=== PATIENT | female | born 1945 | race Caucasian/White ===

== ENCOUNTER 2018-04-19 10:56 | Emergency (ER) | payer MEDICAID, OTHER ==
[2018-04-19] MEDS: ACETAMINOPHEN 500 MG TAB PO (11:40)
== END 2018-04-19 12:13 | disposition home or self-care (01) ==
LOC: FTE 10:56
DX: J03.90 Acute tonsillitis, unspecified (principal)
CPT/HCPCS: 99284; Z7502

== ENCOUNTER 2018-05-31 17:22 | Emergency (ER) | payer MEDICARE, OTHER, MEDICAID ==
[2018-05-31] MEDS: ONDANSETRON 4 MG INJ IV (18:02)
[2018-05-31] MEDS: SOD CHLORIDE 0.9% 500 ML IV (18:03)
[2018-05-31] MEDS: morphine 4 MG/ML VIAL IV (18:03)
[2018-05-31 18:12] LABS: ADD MAN DIFF? NO
[2018-05-31 18:26] LABS: WHITE BLOOD COUNT 8.7 10^3/ul (4.8-10.8)
[2018-05-31 18:26] LABS: BASOPHILS % 0.5 % (0.0-2.0); EOSINOPHILS # 0.2 10^3/ul (0.0-0.5); HEMATOCRIT 38.4 % (37.0-47.0); HEMOGLOBIN 12.1 g/dl (12.0-16.0); LYMPHOCYTES # 3.1 10^3/ul (0.8-2.9); LYMPHOCYTES % 36.2 % (15.0-51.0); MEAN CORPUSCULAR HEMOGLOBIN 28.8 pg (29.0-33.0); MEAN CORPUSCULAR HGB CONC 31.5 g/dl (32.0-37.0); MEAN CORPUSCULAR VOLUME 91.4 fl (82.0-101.0); MEAN PLATELET VOLUME 9.8 fl (7.4-10.4); MONOCYTE # 0.8 10^3/ul (0.3-0.9); MONOCYTES % 9.4 % (0.0-11.0); NEUTROPHIL # 4.5 10^3/ul (1.6-7.5); NEUTROPHILS % 51.7 % (39.0-77.0); PLATELET COUNT 298 10^3/UL (140-415)
[2018-05-31 18:34] LABS: ANION GAP 13 (8-16); BLOOD UREA NITROGEN 22 mg/dl (7-20); CALCIUM 9.2 mg/dl (8.4-10.2); CARBON DIOXIDE 24 mmol/L (21-31); CHLORIDE 108 mmol/L (97-110); CREATININE 0.61 mg/dl (0.44-1.00); GLUCOSE 104 mg/dl (70-220); POTASSIUM 4.7 mmol/L (3.5-5.1); SODIUM 140 mmol/L (135-144)
[2018-05-31 18:45] LABS: TROPONIN-I < 0.012 ng/ml (0.000-0.120)
[2018-05-31] MEDS: IOHEXOL 100 ML (20:08)
[2018-05-31] MEDS: IOHEXOL 350MG/ML 50 ML BTL (20:08)
[2018-05-31] MEDS: SOD CHLORIDE 0.9% 100 ML (20:08)
== END 2018-05-31 23:13 | disposition home or self-care (01) ==
LOC: E/R 17:22
DX: S20.20XA Contusion of thorax, unspecified, initial encounter (principal); I16.0 Hypertensive urgency; E66.01 Morbid (severe) obesity due to excess calories; R07.9 Chest pain, unspecified; I10 Essential (primary) hypertension; X58.XXXA Exposure to other specified factors, initial encounter; Y92.9 Unspecified place or not applicable; Z68.41 Body mass index [BMI] 40.0-44.9, adult
CPT/HCPCS: 36415; 71045; 71275; 75635; 80048; 84484; 85025; 93005; 96374; 96375; 99285-25